=== PATIENT | female | born 1990 | race Hispanic/Latino ===

== ENCOUNTER 2019-01-22 22:32 | Emergency (ER) | payer BC ==
[2019-01-22] MEDS ORDERED: IBUPROFEN 200 MG TAB PO ONE (23:16)
--- NOTE | 2019-01-23 00:42 | ER ---
Nurse's Notes [facility] Name: Thao Torres Age: 29 yrs Sex: Female : 1990 Arrival Date: 01/22/2019 Time: 22:37 Bed 11 Private MD: Diagnosis: Displaced fracture of neck of fifth metacarpal bone, left hand Presentation: 01/22 23:00 Presenting complaint: Patient states: she was playing around and fell landing on her bb left hand now it is painful and swollen incident happened about an hour ago. Transition of care: patient was not received from another setting of care. Onset of symptoms was January 22, 2019. Risk Assessment: Do you want to hurt yourself or someone else? Patient reports no desire to harm self or others. Initial Sepsis Screen: Does the patient meet any 2 criteria? No. Patient's initial sepsis screen is negative. Does the patient have a suspected source of infection? No. Patient's initial sepsis screen is negative. Care prior to arrival: None. 23:00 Method Of Arrival: Ambulatory bb 23:00 Acuity: REEMA 4 bb Triage Assessment: 01/23 01:36 Injury Description: fall. 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 - Social history:: Smoking status: Patient/guardian denies using tobacco, Patient/guardian denies using alcohol, street drugs. - Ebola Screening: : No symptoms or risks identified at this time. Screenin/25 00:00 Abuse screen: Denies threats or abuse. Nutritional screening: No deficits noted. la1 Tuberculosis screening: No symptoms or risk factors identified. Fall Risk None identified. Assessment: 00:00 General: Appears in no apparent distress. Behavior is calm, cooperative. Pain: la1 Complains of pain in left hand. Neuro: Level of Consciousness is awake, alert, obeys commands, Oriented to person, place, time, situation. Cardiovascular: No deficits noted. Respiratory: No deficits noted. GI: No deficits noted. Derm: Skin is pink, warm \T\ dry. Musculoskeletal: Circulation, motion, and sensation intact. Swelling present in left hand Reports pain in left hand. 01:34 Reassessment: Patient is alert, oriented x 3, equal unlabored respirations, skin la1 warm/dry/pink. splint to left hand placed by Dr Flannery is in place, cap refill < 3 seconds to fingers pt able to move fingers. Pt verbalized understanding of and agrees to plan of care discharge instructions given pt ambulated with steady gait to exit accompanied by family. Vital Signs: 01/22 23:02 BP 118 / 79; Pulse 107; Resp 16 S; Temp 99(O); Pulse Ox 98% on R/A; Weight 70.76 kg bb (R); Height 4 ft. 11 in. (149.86 cm) (R); Pain 6/10; 01/23 01:32 BP 117 / 65; Pulse 96; Resp 16 S; Temp 98.5(O); Pulse Ox 99% on R/A; la1 01/22 23:02 Body Mass Index 31.51 (70.76 kg, 149.86 cm) bb ED Course: 01/22 22:37 Patient arrived in ED. es 23:01 Triage completed. bb 23:02 Arm band placed on Patient placed in waiting room, Patient notified of wait time. X-ray bb ordered. 23:29 X-ray completed. Portable x-ray completed in exam room. Patient tolerated procedure kw well. 23:30 Sorin Flannery MD is Attending Physician. tw4 23:31 XRAY Hand LEFT 3 View In Process Unspecified. EDMS 01/23 00:00 Patient has correct armband on for positive identification. Bed in low position. Call la1 light in reach. Adult w/ patient. 00:00 No provider procedures requiring assistance completed. Patient did not have IV access la1 during this emergency room visit. 00:36 Kaushal Rivera MD is Referral Physician. tw4 Administered Medications: 01/22 23:04 Drug: Motrin 600 mg Route: PO; bb 01/23 01:33 Follow up: Response: Pain is decreased la1 Outcome: 00:41 Discharge ordered by . tw4 01:36 Discharged to home ambulatory, with family. bb 01:36 Condition: stable 01:36 Discharge instructions given to patient, Instructed on discharge instructions, follow up and referral plans. medication usage, Demonstrated understanding of instructions, follow-up care, medications, splint care, Prescriptions given X 2. 01:36 Patient left the ED. bb Signatures: Dispatcher [employer] Candice Centeno Brenda RN RN Lo Tolbert Lee, RN RN la1 Sorin Flannery MD MD tw4
--- NOTE | 2019-01-23 00:42 | EDPHYS ---
Physician Documentation [facility] Name: Thao Torres Age: 29 yrs Sex: Female : 1990 Arrival Date: 01/22/2019 Time: 22:37 Bed 11 Private MD: ED Physician Sorin Falnnery HPI: 01/23 06:14 This 29 yrs old Female presents to ER via Ambulatory with complaints of Hand tw4 Injury. 06:14 The patient or guardian reports injury, pain. The complaints affect the MCP of left tw4 little finger. Context: The problem was sustained at home, resulted from a direct blow, a fall. Onset: The symptoms/episode began/occurred today. Modifying factors: The symptoms are alleviated by nothing, the symptoms are aggravated by nothing. Associated signs and symptoms: The patient has no apparent associated signs or symptoms. The patient has not experienced similar symptoms in the past. 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 - Social history:: Smoking status: Patient/guardian denies using tobacco, Patient/guardian denies using alcohol, street drugs. - Ebola Screening: : No symptoms or risks identified at this time. ROS: 01/23 06:14 Constitutional: Negative for fever, chills, and weight loss, Eyes: Negative for injury, tw4 pain, redness, and discharge, Cardiovascular: Negative for chest pain, palpitations, and edema, Respiratory: Negative for shortness of breath, cough, wheezing, and pleuritic chest pain, Abdomen/GI: Negative for abdominal pain, nausea, vomiting, diarrhea, and constipation. MS/extremity: Positive for injury or acute deformity, contusion, decreased range of motion, pain, Negative for bite, deformity, laceration, paresthesias, puncture, tingling. Exam: 06:14 Constitutional: This is a well developed, well nourished patient who is awake, alert, tw4 and in no acute distress. Head/Face: Normocephalic, atraumatic. Chest/axilla: Normal chest wall appearance and motion. Nontender with no deformity. No lesions are appreciated. Cardiovascular: Regular rate and rhythm with a normal S1 and S2. No gallops, murmurs, or rubs. Normal PMI, no JVD. No pulse deficits. Respiratory: Lungs have equal breath sounds bilaterally, clear to auscultation and percussion. No rales, rhonchi or wheezes noted. No increased work of breathing, no retractions or nasal flaring. Abdomen/GI: Soft, non-tender, with normal bowel sounds. No distension or tympany. No guarding or rebound. No evidence of tenderness throughout. 06:14 Musculoskeletal/extremity: Extremities: noted in the dorsal aspect of proximal phalanx of left little finger: pain. Vital Signs: 01/22 23:02 BP 118 / 79; Pulse 107; Resp 16 S; Temp 99(O); Pulse Ox 98% on R/A; Weight 70.76 kg bb (R); Height 4 ft. 11 in. (149.86 cm) (R); Pain 6/10; 01/23 01:32 BP 117 / 65; Pulse 96; Resp 16 S; Temp 98.5(O); Pulse Ox 99% on R/A; la1 01/22 23:02 Body Mass Index 31.51 (70.76 kg, 149.86 cm) bb Procedures: 06:14 Splinting: Splint applied to dorsal aspect of proximal phalanx of left little finger tw4 using Orthoglass splint, applied by myself. Examined by me, post splint application: neurovascular intact, 2+ distal pulses palpable, Patient tolerated well. MDM: 00:07 Patient medically screened. tw4 06:14 Differential diagnosis: dislocation. Data reviewed: vital signs, nurses notes. tw4 Counseling: I had a detailed discussion with the patient and/or guardian regarding: the historical points, exam findings, and any diagnostic results supporting the discharge/admit diagnosis, radiology results. Special discussion: I discussed with the patient/guardian in detail that at this point there is no indication for admission to the hospital. It is understood, however, that if the symptoms persist or worsen the patient needs to return immediately for re-evaluation. 01/22 23:03 Order name: XRAY Hand LEFT 3 View bb 01/23 01:33 Order name: Splint; Complete Time: 01:33 la1 Administered Medications: 01/22 23:04 Drug: Motrin 600 mg Route: PO; bb 01/23 01:33 Follow up: Response: Pain is decreased la1 Disposition: 01/23/19 00:41 Discharged to Home. Impression: Displaced fracture of neck of fifth metacarpal bone, left hand. - Condition is Stable. - Discharge Instructions: Boxer's Fracture. - Prescriptions for Ibuprofen 800 mg Oral Tablet - take 1 tablet by ORAL route every 8 hours As needed take with food; 30 tablet. Tylenol- Codeine #3 300-30 mg Oral Tablet - take 2 tablet by ORAL route every 6 hours As needed; 6 tablet. - Work release form, Medication Reconciliation Form, Thank You Letter, Antibiotic Education, Prescription Opioid Use form. - Follow up: Kaushal Rivera MD; When: Upon discharge from the Emergency Department; Reason: If symptoms return, Recheck today's complaints, Continuance of care. - Problem is new. - Symptoms have improved. Signatures: Dispatcher [employer] EDLa Nena Johnson RN RN bb Attema, Lee, RN RN la1 Sorin Flannery MD MD tw4 Corrections: (The following items were deleted from the chart) 01:36 00:41 01/23/2019 00:41 Discharged to Home. Impression: Displaced fracture of neck of bb fifth metacarpal bone, left hand. Condition is Stable. Forms are Medication Reconciliation Form, Thank You Letter, Antibiotic Education, Prescription Opioid Use. Follow up: Kaushal Rivera; When: Upon discharge from the Emergency Department; Reason: If symptoms return, Recheck today's complaints, Continuance of care. Problem is new. Symptoms have improved. tw4
--- NOTE | 2019-01-23 08:28 | RAD REPORT ---
EXAM DESCRIPTION: RAD - Hand Left 3 View - 01/22/2019 11:30 pm CLINICAL HISTORY: Fall, hand pain, trauma COMPARISON: None. FINDINGS: An oblique fracture is present through the head and distal shaft of the fifth metacarpal. No distraction or angulation deformity. No other fracture changes are seen. No dislocation or periost eal reaction. No pathologic bone process. No air or foreign body. IMPRESSION: Distal fifth metacarpal fracture as detailed. No distraction or angulation deformity.
== END 2019-01-23 01:36 | disposition home or self-care (01) ==
LOC: ER 22:32
PROC: 2W3KX1Z Immobilization of Left Finger using Splint (ICD-10-PCS; principal; 2019-01-23)
DX: S62.337A Displaced fracture of neck of fifth metacarpal bone, left hand, initial encounter for closed fracture (principal); W18.30XA Fall on same level, unspecified, initial encounter; Y93.9 Activity, unspecified; Y92.830 Public park as the place of occurrence of the external cause
CPT/HCPCS: 99283